=== PATIENT | female | born 1940 | race Caucasian/White ===

== ENCOUNTER 2017-08-12 08:25 | Day surgery (SDC) | payer MEDICARE, BC ==
[~2017-08-12 08:25] MED LIST: LIDOCAINE HCL 1% MPF SOL ONE; PROPOFOL 500 MG/50 ML EMU IV ONE
[2017-08-12 10:07] VITALS: TEMP 97.6
[2017-08-12 10:18] VITALS: PULSE 70; RESP 18
[2017-08-12 10:39] VITALS: BP 149/74; O2SAT 96
== END 2017-08-12 11:15 | disposition home or self-care (01) | DRG 433 ==
LOC: SURG 08:25
PROVIDERS: ATTEND Internal Medicine Gastroenterology
DX: K74.60 Unspecified cirrhosis of liver (principal); I85.10 Secondary esophageal varices without bleeding; K76.6 Portal hypertension; Q39.8 Other congenital malformations of esophagus; K44.9 Diaphragmatic hernia without obstruction or gangrene; K31.89 Other diseases of stomach and duodenum; Q40.3 Congenital malformation of stomach, unspecified
CPT/HCPCS: J2001; J2704